=== PATIENT | female | born 1995 | race Caucasian/White ===

== ENCOUNTER 2023-05-23 01:34 | Inpatient (IN) | payer OTHER, SELFPAY ==
[2023-05-23 02:05] VITALS: BMI 28.3
[2023-05-23 02:12] LABS: Fetal Membranes Rupture RUPTURE DETECTED (No Rupture)
[2023-05-23] MEDS ORDERED: Ondansetron PF 4 MG/2 ML Vial IVP PRN ×2 (03:16→09:10)
[2023-05-23] MEDS ORDERED: Carboprost 250 MCG/ML AMP IM PRN (03:16)
[2023-05-23] MEDS ORDERED: Docusate 100 MG CAP PO PRN (03:16)
[2023-05-23] MEDS ORDERED: Bicitra 30 ML UDCUP PO PRN (03:16)
[2023-05-23] MEDS ORDERED: Diphenoxylate HCl/Atropine Tablet PO PRN (03:16)
[2023-05-23] MEDS ORDERED: Methylergonovine 0.2 MG/ML VIAL IM PRN (03:16)
[2023-05-23] MEDS ORDERED: Promethazine HCl 25 MG/ML VIAL IM PRN ×2 (03:16→09:10)
[2023-05-23] MEDS ORDERED: hydrALAZINE 20 MG/ML VIAL SLOW IVP PRN ×3 (03:16→12:24)
[2023-05-23] MEDS ORDERED: Famotidine/PF 20 mg/2ml Vial SLOW IVP PRN (03:16)
[2023-05-23] MEDS ORDERED: CEFAZOLIN 2 GM in Sodium Chloride 0.9% 100 ML IVPB SCH (03:30)
[2023-05-23] MEDS ORDERED: NS w/ Oxytocin 30 units 500 ML IV SCH (03:30)
[2023-05-23] MEDS ORDERED: Azithromycin 500 MG in Sodium Chloride 0.9% 250 ML 250 ML IVPB SCH (03:30)
[2023-05-23 04:01] LABS: Hemoglobin 12.3 g/dL (12.0-15.5); Mean Corpuscular HGB CONC 33.2 g/dL (32.0-36.0); Mean Corpuscular Hemoglobin 27.8 pg (27.0-33.0); Mean Corpuscular Volume 83.7 fl (81.6-98.3); Platelet Count 176 10x3/uL (150-450); RBC Distribution Width 13.8 % (11.5-14.5); Red Blood Cell (RBC) Count 4.42 10x6/uL (3.90-5.03); White Blood Cell (WBC) Count 10.2 10x3/uL (3.5-10.5)
[2023-05-23 04:33] LABS: HBSAg Index 0.18 S/CO (0-0.99); Hep B Surf Ag - L&D Non-Reactive S/CO (NonReactive)
[2023-05-23 04:34] LABS: Syphilis Antibody Nonreactive (Nonreactive); Syphilis Antibody Index 0.02 S/CO (<1.00 Non-Reactive)
[2023-05-23] MEDS ORDERED: Boostrix 0.5 ML (Tdap) VIAL (>/=7 yrs of age) IM ONE (07:20)
[2023-05-23] MEDS ORDERED: Simethicone Chewable 80 MG TAB PO PRN (07:20)
[2023-05-23] MEDS ORDERED: Acetaminophen 325 MG TAB PO PRN ×2 (07:20→12:24)
[2023-05-23] MEDS ORDERED: diphenhydrAMINE 25 MG CAP PO PRN (07:20)
[2023-05-23] MEDS ORDERED: Misoprostol 200 MCG TAB PR PRN (07:20)
[2023-05-23] MEDS ORDERED: HYDROcodone/Acetaminophen 5/325 mg Tablet PO PRN ×3 (07:20→12:24)
[2023-05-23] MEDS ORDERED: Ondansetron PF 4 MG/2 ML Vial ONE (07:31)
[2023-05-23] MEDS ORDERED: fentaNYL 50 mcg/mL 1 mL Vial ONE (07:31)
[2023-05-23] MEDS ORDERED: Morphine PF 10 MG/10 ML VIAL ONE (07:31)
[2023-05-23] MEDS ORDERED: Oxytocin 10 UNITS/ML VIAL ONE (07:32)
[2023-05-23] MEDS ORDERED: Ketorolac Tromethamine 30 MG/ML VIAL ONE (07:32)
[2023-05-23] MEDS ORDERED: Phenylephrine 40 MG/NS 250 ML 250 ML ONE (07:32)
[2023-05-23] MEDS ORDERED: Dexamethasone 4 mg/ml Vial ONE (07:32)
[2023-05-23] MEDS ORDERED: diphenhydrAMINE 50 MG/ML VIAL ONE (07:50)
[2023-05-23] MEDS ORDERED: Docusate 100 MG CAP PO SCH (09:00)
[2023-05-23] MEDS ORDERED: Ferrous Sulfate 325 MG TAB PO SCH ×2 (09:00→13:00)
[2023-05-23] MEDS ORDERED: Prenatal Vitamin 1 TAB PO SCH ×2 (09:00→13:00)
[2023-05-23] MEDS ORDERED: Meperidine HCl/PF 25 MG/ML VIAL SLOW IVP PRN (09:10)
[2023-05-23] MEDS ORDERED: Naloxone HCl 0.4 mg/ml Vial IV PRN (09:10)
[2023-05-23] MEDS ORDERED: diphenhydrAMINE 50 MG/ML VIAL IVP PRN (09:10)
[2023-05-23] MEDS ORDERED: Naloxone HCl 0.4 mg/ml Vial IVP PRN ×2 (09:10)
[2023-05-23] MEDS ORDERED: Promethazine HCl 25 MG SUPP PR PRN (09:10)
[2023-05-23] MEDS ORDERED: Fentanyl 100 MCG/2 ML VIAL SLOW IVP PRN (09:10)
[2023-05-23] MEDS ORDERED: Ondansetron HCl/PF 4 MG/2 ML Vial IVP PRN (09:10)
[2023-05-23] MEDS ORDERED: Moisturizing Cream (Eucerin) 113 GM JAR TOP PRN (09:10)
[2023-05-23] MEDS ORDERED: Communication Order-Pharmacy FS SCH (09:15)
[2023-05-23] MEDS ORDERED: Meperidine HCl/PF 25 MG/ML VIAL ONE (11:22)
[2023-05-23] MEDS ORDERED: Lanolin Ointment 7 GM TUBE TOP PRN (12:24)
[2023-05-23] MEDS ORDERED: Ibuprofen 800 MG TAB PO SCH (14:00)
[2023-05-23] MEDS: Ketorolac Tromethamine 30 MG/ML VIAL IVP SCH ×2 (15:06→21:01)
[2023-05-23] MEDS: Ferrous Sulfate 325 MG TAB PO SCH (20:30)
[2023-05-24] MEDS: HYDROcodone/Acetaminophen 5/325 mg Tablet PO PRN ×3 (00:24→20:49)
[2023-05-24] MEDS: Ketorolac Tromethamine 30 MG/ML VIAL IVP SCH ×2 (02:35→09:20)
[2023-05-24] MEDS: Ferrous Sulfate 325 MG TAB PO SCH ×2 (07:21→19:36)
[2023-05-24] MEDS: Simethicone Chewable 80 MG TAB PO PRN ×2 (09:19→20:50)
[2023-05-24] MEDS: Prenatal Vitamin 1 TAB PO SCH (09:19)
[2023-05-24] MEDS ORDERED: Ibuprofen 800 MG TAB PO SCH (14:00)
[2023-05-24] MEDS: Ibuprofen 800 MG TAB PO SCH ×2 (14:39→22:21)
[2023-05-25] MEDS: Simethicone Chewable 80 MG TAB PO PRN ×3 (05:23→12:51)
[2023-05-25] MEDS: Ibuprofen 800 MG TAB PO SCH ×2 (05:23→14:35)
[2023-05-25 07:44] VITALS: BP 115/61; TEMP 98.3
[2023-05-25] MEDS: Prenatal Vitamin 1 TAB PO SCH (08:56)
[2023-05-25] MEDS: Ferrous Sulfate 325 MG TAB PO SCH (08:58)
[2023-05-25] MEDS: HYDROcodone/Acetaminophen 5/325 mg Tablet PO PRN (12:49)
== END 2023-05-25 17:15 | disposition home or self-care (01) | DRG 788 ==
LOC: CSHLD/OP 01:34 → CSHLD 03:16 → CSHPP 11:30
PROVIDERS: ADMIT Obstetrics & Gynecology; ATTEND Obstetrics & Gynecology
PROC: 10D00Z1 Extraction of Products of Conception, Low, Open Approach (ICD-10-PCS; principal; 2023-05-23)
PROC: 3E0334Z Introduction of Serum, Toxoid and Vaccine into Peripheral Vein, Percutaneous Approach (ICD-10-PCS; 2023-05-23)
DX: O42.02 Full-term premature rupture of membranes, onset of labor within 24 hours of rupture (principal); O32.1XX0 Maternal care for breech presentation, not applicable or unspecified; Z3A.38 38 weeks gestation of pregnancy; Z37.0 Single live birth; O26.893 Other specified pregnancy related conditions, third trimester; Z67.41 Type O blood, Rh negative
CPT/HCPCS: 36415; 51702; 84112; 85027; 85461; 86780; 86850; 86900; 86901; 87340; 90384; 96372; 99285; J0456; J1100; J1200; J1885; J2175; J2274; J2405; J2590; J3010; J3490; J7050

== ENCOUNTER 2024-12-17 03:13 | Inpatient (IN) | payer BC ==
[2024-12-17 03:34] VITALS: BMI 30.6
[2024-12-17 03:52] LABS: Fetal Membranes Rupture RUPTURE DETECTED (No Rupture)
[2024-12-17] MEDS ORDERED: Misoprostol 200 MCG TAB RC PRN (04:15)
[2024-12-17] MEDS ORDERED: Oxytocin 30 units/NS 500 ML 500 ML IV SCH (04:15)
[2024-12-17] MEDS ORDERED: Diphenoxylate HCl/Atropine Tablet PO PRN ×2 (04:15)
[2024-12-17] MEDS ORDERED: fentaNYL 50 mcg/mL 1 mL Vial SLOW IVP PRN (04:15)
[2024-12-17] MEDS ORDERED: Promethazine HCl 25 MG/ML VIAL IM PRN ×2 (04:15→07:20)
[2024-12-17] MEDS ORDERED: HYDROcodone/Acetaminophen 5/325 mg Tablet PO PRN ×2 (04:15)
[2024-12-17] MEDS ORDERED: Ondansetron PF 4 MG/2 ML Vial IVP PRN ×2 (04:15→07:20)
[2024-12-17] MEDS ORDERED: Methylergonovine 0.2 MG/ML VIAL IM PRN (04:15)
[2024-12-17] MEDS ORDERED: hydrALAZINE 20 MG/ML VIAL SLOW IVP PRN ×2 (04:15→16:45)
[2024-12-17] MEDS ORDERED: Tranexamic Acid 1,000 MG/10 ML VIAL IVP PRN (04:15)
[2024-12-17] MEDS ORDERED: Lidocaine 1% (PF) 30 ML VIAL SC PRN (04:15)
[2024-12-17] MEDS ORDERED: Carboprost 250 MCG/ML AMP IM PRN (04:15)
[2024-12-17] MEDS ORDERED: Ibuprofen 800 MG TAB PO PRN (04:15)
[2024-12-17] MEDS ORDERED: Acetaminophen 500 MG TAB PO PRN (04:15)
[2024-12-17] MEDS: Penicillin G Potassium 5 MILL.UNITS in Sodium Chloride 0.9% 100 ML IVPB SCH (04:30)
[2024-12-17] MEDS: Lactated Ringer's 1,000 ML IV SCH (04:30)
[2024-12-17] MEDS: Oxytocin 30 units/NS 500 ML 500 ML IV SCH (04:42)
[2024-12-17 04:48] LABS: Hematocrit 38.7 % (34.9-44.5); Hemoglobin 13.1 g/dL (12.0-15.5); Mean Corpuscular HGB CONC 33.9 g/dL (32.0-36.0); Mean Corpuscular Hemoglobin 28.2 pg (27.0-33.0); Mean Corpuscular Volume 83.2 fL (81.6-98.3); Mean Platelet Volume 11.5 fL (7.4-10.4); Platelet Count 194 10x3/uL (150-450); RBC Distribution Width 13.2 % (11.5-14.5); Red Blood Cell (RBC) Count 4.65 10x6/uL (3.90-5.03); White Blood Cell (WBC) Count 9.09 10x3/uL (3.5-10.5)
[2024-12-17 05:25] LABS: HBsAg Index 0.43 S/CO (0-0.99); Hep B Surf Ag - L&D Non-Reactive S/CO (NonReactive)
[2024-12-17 05:26] LABS: Syphilis Antibody Nonreactive (Nonreactive); Syphilis Antibody Index 0.02 S/CO (<1.00 Non-Reactive)
[2024-12-17] MEDS ORDERED: ePHEDrine Sulfate 50 MG/10 ML VIAL SLOW IVP PRN (07:20)
[2024-12-17] MEDS ORDERED: Naloxone HCl 0.4 mg/ml Vial IVP PRN ×2 (07:20)
[2024-12-17] MEDS ORDERED: diphenhydrAMINE 50 MG/ML VIAL IVP PRN (07:20)
[2024-12-17] MEDS ORDERED: Moisturizing Cream (Eucerin) 113 GM JAR TOP PRN (07:20)
[2024-12-17] MEDS ORDERED: Acetaminophen 325 MG TAB PO PRN (07:20)
[2024-12-17] MEDS ORDERED: Lactated Ringer's 500 ML IV PRN (07:25)
[2024-12-17] MEDS ORDERED: fentaNYL 2 mcg/Ropivacaine 0.2% Epidural 100 ML CADD EPIDURAL SCH (07:30)
[2024-12-17] MEDS ORDERED: Communication Order-Pharmacy FS SCH (07:30)
[2024-12-17] MEDS: fentaNYL/Ropivacaine Epidural 100 ML ONE (07:34)
[2024-12-17] MEDS: Penicillin G 2.5 MILL.units 2.5 MILL.UNITS in Premix 1 BAG IVPB SCH (08:46)
[2024-12-17] MEDS ORDERED: Lanolin Ointment 7 GM TUBE TOP PRN (16:45)
[2024-12-17] MEDS ORDERED: Benzocaine-Menthol 82.5 ML CAN TOP PRN (16:45)
[2024-12-17] MEDS ORDERED: Milk Of Magnesia 30 ML UDCUP PO PRN (16:45)
[2024-12-17] MEDS ORDERED: traMADol HCl 50 MG TAB PO PRN (16:45)
[2024-12-17] MEDS ORDERED: diphenhydrAMINE 25 MG CAP PO PRN (16:45)
[2024-12-17] MEDS ORDERED: Bisacodyl 10 MG SUPP PR PRN (16:45)
[2024-12-17] MEDS ORDERED: Bupivacaine/Epinephrine 0.25% 30 ML VIAL ONE (17:00)
[2024-12-17] MEDS ORDERED: Boostrix 0.5 ML (Tdap) VIAL (>/=7 yrs of age) IM ONE (17:15)
[2024-12-17] MEDS: Ferrous Sulfate 325 MG TAB PO SCH (19:31)
[2024-12-17] MEDS: Docusate 100 MG CAP PO SCH (21:31)
[2024-12-17] MEDS: Ibuprofen 800 MG TAB PO SCH (21:31)
[2024-12-18] MEDS: Prenatal Vitamin 1 TAB PO SCH (08:43)
[2024-12-18 15:23] VITALS: BP 127/65; TEMP 98.4
== END 2024-12-18 16:40 | disposition home or self-care (01) | DRG 807 ==
LOC: CSHLD/OP 03:13 → CSHLD 04:00 → CSHPP 18:10
PROVIDERS: ADMIT Obstetrics & Gynecology; ATTEND Obstetrics & Gynecology
PROC: 10E0XZZ Delivery of Products of Conception, External Approach (ICD-10-PCS; principal; 2024-12-17)
PROC: 3E0S3BZ Introduction of Anesthetic Agent into Epidural Space, Percutaneous Approach (ICD-10-PCS; 2024-12-17)
PROC: 0HQ9XZZ Repair Perineum Skin, External Approach (ICD-10-PCS; 2024-12-17)
DX: O34.211 Maternal care for low transverse scar from previous cesarean delivery (principal); Z37.0 Single live birth; Z3A.39 39 weeks gestation of pregnancy; O99.824 Streptococcus B carrier state complicating childbirth; O70.0 First degree perineal laceration during delivery
CPT/HCPCS: 36415; 51702; 84112; 85027; 85461; 86780; 86850; 86900; 86901; 87340; 90384; 96372; 99285; J2540; J2590; J7120